=== PATIENT | male | born 1975 | race African-American/Black ===

== ENCOUNTER 2020-02-26 04:12 | Emergency (ER) | payer OTHER ==
[~2020-02-26] VITALS: Ht 182.9 cm; Wt 104.3 kg
[2020-02-26 07:18] VITALS: BP 182/111
== END 2020-02-26 07:40 | disposition short-term general hospital (02) ==
LOC: ER 04:12
DX: N48.33 Priapism, drug-induced (principal); Z91.041 Radiographic dye allergy status; T50.995A Adverse effect of other drugs, medicaments and biological substances, initial encounter; Y92.89 Other specified places as the place of occurrence of the external cause